=== PATIENT | female | born 1995 | race Two or more races ===

== ENCOUNTER 2024-02-02 20:31 | Emergency (ER) | payer OTHER ==
[~2024-02-02] VITALS: Ht 167.6 cm; Wt 50.3 kg
[~2024-02-02 20:31] MED LIST: PRENATABS RX TA1 TAB
[2024-02-02] MEDS ORDERED: ACETAMINOPHEN 500 MG GEL..CAP PO ONE ×2 (23:45)
[2024-02-03 00:13] LABS: PH,URINE 6.5 (5.0-8.0); URINE APPEARANCE Clear; URINE BILIRRUBIN Negative (NEGATIVE); URINE BLOOD Negative; URINE COLOR Yellow; URINE GLUCOSE Negative (NEGATIVE); URINE KETONE Negative (NEGATIVE); URINE LEUKOCYTE Negative; URINE NITRATE Negative; URINE PROTEIN Negative (NEGATIVE); URINE UROBILINOGEN 0.2 E.U./dl
[2024-02-03 00:14] LABS: URINE BACTERIA 30.1 uL (0.0-1933)
[2024-02-03 00:24] LABS: URINE RBC 0.1 uL (0.0-20.8); URINE WBC 0.7 uL (0.0-23.2)
== END 2024-02-03 00:43 | disposition home or self-care (01) ==
LOC: ER 20:32
PROVIDERS: Emergency Medicine
DX: O20.8 Other hemorrhage in early pregnancy (principal); Z3A.01 Less than 8 weeks gestation of pregnancy; N93.9 Abnormal uterine and vaginal bleeding, unspecified

== ENCOUNTER → 2024-02-23 | Emergency (ER) | payer OTHER ==
[~2024-02-23] VITALS: Ht 170.2 cm; Wt 52.6 kg
[2024-02-23 19:27] LABS: HEMATOCRIT 37.1 % (36.0-45.00); HEMOGLOBIN 12.9 g/dL (12.0-15.00); MEAN CELL VOLUME 85.6 fL (80.00-100.00); MEAN CORPUSCULAR HEMOGLOBIN 29.8 pg (27.00-32.0); MEAN CORPUSCULAR HGB CONC 34.8 g/dl (32.0-36.0); PLATELET COUNT 305 K/uL (150-450); RED BLOOD COUNT 4.33 M/uL (4.00-6.00); RED CELL DISTRIBUTION WIDTH 12.3 % (11.5-14.5)
[2024-02-23 19:28] LABS: URINE APPEARANCE Clear; URINE BILIRRUBIN Negative (NEGATIVE); URINE BLOOD Negative; URINE COLOR Yellow; URINE GLUCOSE Negative (NEGATIVE); URINE KETONE Negative (NEGATIVE); URINE LEUKOCYTE Negative; URINE NITRATE Negative; URINE PROTEIN Negative (NEGATIVE); URINE UROBILINOGEN 0.2 E.U./dl
[2024-02-23 19:29] LABS: URINE BACTERIA 180.1 uL (0.0-1933); URINE EPITHELIAL CELLS 6.6 uL (0.0-38.8); URINE RBC 2.5 uL (0.0-20.8); URINE WBC 3.5 uL (0.0-23.2)
[2024-02-23 20:05] LABS: CALCIUM 9.6 mg/dL (8.5-10.1); CREATININE SERUM 0.62 mg/dL (0.55-1.02); GFR 116.35; POTASSIUM 3.92 mEq/L (3.5-5.1)
== END | disposition home or self-care (01) ==
LOC: ER 17:11
PROVIDERS: Emergency Medicine
DX: O20.8 Other hemorrhage in early pregnancy (principal); Z3A.01 Less than 8 weeks gestation of pregnancy